=== PATIENT | male | born 2000 | race Two or more races ===

== ENCOUNTER 2023-12-12 21:00 | Emergency (ER) | payer OTHER, SELFPAY ==
[2023-12-12 21:23] VITALS: BP 113/71; PULSE 65; RESP 14; TEMP 36.8; O2SAT 100; BMI 25.7
[2023-12-12 23:24] VITALS: BP 112/77; PULSE 61; RESP 18; TEMP 36.3; O2SAT 100
--- NOTE | 2023-12-13 00:26 | ED.WOUNDLAC ---
HPI - Wound/Laceration General Chief Complaint: Wound/Laceration Stated Complaint: left hand wound Time Seen by Provider: 12/12/23 23:46 Source: patient Mode of arrival: ambulatory Limitations: no limitations History of Present Illness HPI narrative: 23 year old right hand dominant male with no significant pmhx presents to the ED today for evaluation of laceration to left palm sustained while attempting to open a disinfectant package at work with a knife 4 days ago. Immediately washed the area out. He has had no difficulty with ROM of left hand however endorses occasional tingling up his left upper extremity. No further injury or trauma to the extremity. Tetanus not up to date. Denies fever, chills, muscle aches, stiffness. Related Data Allergies Allergy/AdvReac Type Severity Reaction Status Date / Time No Known Allergies Allergy Verified 12/12/23 21:27 Review of Systems Review of Systems: Constitutional: No fever, chills, fatigue, night sweats, weight changes ENT/Mouth: No ear pain, hearing loss, nasal congestion, sinus pain, rhinorrhea, sore throat Eyes: No eye pain, swelling, redness, vision changes, discharge Cardio: No chest pain, palpitations, PINEDA, orthopnea, peripheral edema Pulm: No SOB, cough, sputum, wheezing, dyspnea, hemoptysis GI: No nausea, vomiting, hematemesis, abdominal pain, diarrhea, constipation, hematochezia, melena : No irregular bleeding, dysuria, frequency, urgency, hesitancy, hematuria, flank pain, urinary flow changes, urinary incontinence or retention MSK: No back pain, neck pain, joint pain, myalgias Skin: No lesions, rashes, +abrasion Neuro: No weakness, numbness, paresthesias, LOC, dizziness, headache Psych: No anxiety/panic, depression, SI/HI, AH/VH All other systems reviewed and are negative. [facility] Past Medical History Attestation statement: The following information was validated with the patient. Source: old records reviewed and nursing notes reviewed Social History Social History Advance Directives: No Advance Directives Information Provided: No Physical Exam Vital Signs: Vital Signs: Last Vital Signs Temp 97.4 F 12/12/23 23: Pulse 61 12/12/23 23:24 Resp 18 12/12/23 23:24 BP 112/77 12/12/23 23:24 Pulse Ox 100 12/12/23 23:24 O2 Del Method Room Air 12/12/23 23:24 BMI result Body Mass Index 25.7 Vital signs stable Const: General: cooperative, healthy appearing, comfortable and no acute distress Orientation/consciousness: patient oriented x3 Limitations: no limitations HEENT: Head: Yes normal to inspection, Yes No palpable skull fracture present, Yes normocephalic and Yes atraumatic Eyes: General: appearance normal, both eyes and all related structures Conjunctivae: conjunctivae normal Sclerae: sclerae normal Pupils: Equal, round and reactive pupils present Neck: Neck: Yes normal visual inspection and Yes no meningeal signs Resp: Effort & Inspection: normal respiratory effort Cardio: Rate: regular rate Rhythm: regular rhythm Skin: Other: + 0.5 cm superficial linear laceration noted to left palm proximal to bridge of finger. Healing. No active discharge or bleeding. No surrounding erythema. Nontender to palpation. Neurovascularly intact distally. Neuro: General: patient oriented x3, tone normal, no meningeal signs and no focal motor deficits Cranial nerves: Yes Equal, round and reactive pupils present Extrem: General: Yes normal to inspection, Yes full ROM and Yes capillary refill normal Course Course Course Narrative: Abrasion not requiring repair. Tetanus updated. Is neurovascularly intact distally. Well-appearing. Patient has remained stable throughout ED visit today. Discussed worrisome signs and symptoms and when to return to the ED. All questions answered at this time. Patient is agreeable with disposition and stable for discharge. Medical Decision Making Medical Decision Making MDM Narrative: 23 year old right hand dominant male with no significant pmhx presents to the ED today for evaluation of laceration to left palm sustained while attempting to open a disinfectant package at work with a knife 4 days ago. Vital signs stable. He is nontoxic appearing in no acute distress. Exam unremarkable. + 0.5 cm superficial linear laceration noted to left palm proximal to bridge of finger. Healing. No active discharge or bleeding. No surrounding erythema. Nontender to palpation. Neurovascularly intact distally. Differential diagnosis includes abrasion, laceration, contusion. Low suspicion for cellulitis, osteo, fracture, nv compromise, threat to limb, tetanus. Plan for tdap update and discharge. Differential Diagnosis Differential Diagnoses: The differential diagnosis associated with the presentation includes as above. Admission/Observation not indicated. Prescription Management I considered prescription management with: Pain Medication Social Determinants Patient?s care significantly limited by Social Determinants of Health including: Other Social Determinant of Health Critical Care Time Critical Care Time Critical Care Time: No Discharge Plan Discharge Clinical Impression: Abrasion Patient Disposition: Home, Self-Care Instructions: Tetanus Toxoid (By injection), Tetanus Immune Globulin (By injection), Tetanus (ED) Additional Instructions: You were seen today for laceration to your left finger. This did not require repair today. Your tetanus was updated. Return with new or worsening symptoms. In the case of an emergency call 911. Discharge Date/Time: 12/13/23 00:33 Print Language: [place]
[2023-12-13] MEDS: Diphth,Pertus(ACell),Tet Adult 0.5 ML SYRINGE IM (00:27)
[2023-12-13 00:32] VITALS: BP 112/77; PULSE 61; RESP 18; TEMP 36.3; O2SAT 100
== END 2023-12-13 00:33 | disposition home or self-care (01) ==
PROVIDERS: Emergency Provider Emergency Medicine
DX: S60.512A Abrasion of left hand, initial encounter (principal); W26.0XXA Contact with knife, initial encounter; Y93.9 Activity, unspecified; Y92.89 Other specified places as the place of occurrence of the external cause; Y99.0 Civilian activity done for income or pay
CPT/HCPCS: 90471; 90715; 99283; 99284